=== PATIENT | male | born 1955 | race Caucasian/White ===

== ENCOUNTER → 2017-10-09 07:19 | Outpatient (CLI) | payer OTHER, SELFPAY ==
--- NOTE | 2017-10-09 | DI.MRI.S_ITS ---
PROCEDURE: MR CERVICAL SPINE WO CON INDICATIONS: CERVICAL SPINE RADICULOPATHY TECHNIQUE: Noncontrast sagittal T1 spin echo and T2 fast spin echo, sagittal STIR, foraminal oblique sagittal T2 fast spin echo, and axial gradient echo or T2 fast spin echo through the cervical spine. COMPARISON: [facility], CR, XR CERVICAL SPINE 2 OR 3 VIEWS, 09/19/2017, 9:43. FINDINGS: Image quality: Excellent. Alignment and Curvature: There is normal bony alignment. Bone Marrow: Marrow demonstrates normal overall signal. Mild reactive signal within the endplates adjacent to the C3-C4, C4-C5, C5-C6, and C6-C7 intervertebral discs. Spinal Cord: Visualized spinal cord has normal size and signal. No cerebellar tonsillar herniation. Paraspinous Soft Tissues: No paravertebral masses. Prevertebral soft tissues are normal in thickness. C2-C3: Left greater than right facet hypertrophy. Mild disc desiccation. Mild right and moderate left foraminal stenosis. No canal stenosis. C3-C4: Mild disc desiccation and diffuse disc bulge with superimposed moderate right posterolateral inferolateral protrusion. Mild facet and uncovertebral hypertrophy bilaterally. Moderate canal stenosis. Severe right and mild left foraminal stenosis. Minimal right anterior cord flattening. C4-C5: Mild disc desiccation and mild diffuse disc bulge. Mild facet and uncovertebral hypertrophy bilaterally. Moderate canal stenosis. Mild foraminal stenosis bilaterally. C5-C6: Mild disc desiccation and diffuse disc bulge. Mild facet and uncovertebral hypertrophy bilaterally. Mild canal stenosis. Mild foraminal stenosis bilaterally. C6-C7: Mild disc desiccation and diffuse disc bulge. Mild facet and uncovertebral hypertrophy bilaterally. Minimal canal stenosis. No foraminal stenosis. C7-T1: Mild disc desiccation and mild diffuse disc bulge. Mild facet and uncovertebral hypertrophy bilaterally. Mild canal stenosis. No foraminal stenosis. IMPRESSION: 1. Multilevel degenerative disc and facet disease, as well as uncovertebral hypertrophy. 2. Multilevel canal stenoses, worst at C3-C4, where there is moderate canal stenosis and minimal right anterior cord flattening. 3. Multilevel foraminal stenoses, worst on the left at C2-C3, and on the right at C3-C4. Dictated by: Reyna Gerardo M.D. on 10/09/2017 at 10:04 Approved by: Reyna Gerardo M.D. on 10/09/2017 at 10:07
== END ==
PROVIDERS: Visit Provider Orthopaedic Surgery Orthopaedic Surgery of the Spine
DX: M50.11 Cervical disc disorder with radiculopathy, high cervical region (principal); M48.02 Spinal stenosis, cervical region
CPT/HCPCS: 72141

== ENCOUNTER 2017-11-23 05:26 | Day surgery (SDC) | payer OTHER, SELFPAY ==
[2017-11-09 14:36] VITALS: BMI 34.4
[2017-11-23] VITALS (11 sets, daily range): BP systolic 134–169; BP diastolic 83–108; PULSE 64–96; RESP 11–16; TEMP 36–36.6; O2SAT 96–99; BMI 34.4
--- NOTE | 2017-11-23 | DI.RAD.S_ITS ---
PROCEDURE: XR CERVICAL SPINE 2V OR 3V INDICATIONS: C3-4 ACDF TECHNIQUE: 2 view(s) of the cervical spine were acquired. COMPARISON: [facility], MR, MR CERVICAL SPINE WO CON, 10/09/2017, 7:35. [facility], CR, XR CERVICAL SPINE 2 OR 3 VIEWS, 09/19/2017, 9:43. FINDINGS: Intraoperative images demonstrating anterior fusion from C3-C4 is present. There is trace anterolisthesis of C3 on C4.. IMPRESSION: ACDF at C3-4. Dictated by: Clarissa Snow M.D. on 11/23/2017 at 15:01 Approved by: Clarissa Snow M.D. on 11/23/2017 at 15:01
[2017-11-23] MEDS: LACTATED RINGERS 1,000 ML 42 ML IV ×2 (06:55→10:34)
--- NOTE | 2017-11-23 07:55 | PM.PREOP ---
Pre-operative Note Interval Note Pre-op Check: Yes History & Physical Reviewed by Physician, Yes Exam Performed and Yes History & Physical exam performed today by Physician Changes: No
[2017-11-23] MEDS: CEFAZOLIN 2 GM/100 ML FROZ.PIGGY IV (08:00)
--- NOTE | 2017-11-23 08:31 | SUR.OPER ---
Prone on spine table, head in foam head support, padded chest and pelvic supports, gel pad at knees, lower legs supported by pillows; nipples, genitalia and toes free of pressure, arms secured on foam padded arm boards at <90 degrees abduction. Tape over blanket at thigh secured to table.
--- NOTE | 2017-11-23 09:22 | SUR.OPER ---
Supine, head on gel donut. Arms padded with gel pads, tucked at sides, towel roll under shoulders. Safety belt at thigh. Legs uncrossed.
--- NOTE | 2017-11-23 09:50 | P.OP_ITS ---
Operative Date/Time/Diagnoses Date of procedure: 11/23/17 Time of procedure: 08:12 Pre-op diagnosis: 1. C3-4 spinal stenosis 2. C3-4 spondylosis with radiculopathy Post-op diagnosis: same Procedure & Clinicians Procedure: 1. C3-4 anterior cervical diskectomy and fusion 2. C3-4 anterior interbody cage placement 3. C3-4 anterior instrumentation with plate and screw placement in C3 and C4 vertebrae 4. Utilization of microsurgical technique and operating microscope Same procedure as scheduled: Yes Indications: Patient has been having chronic neck pain and worsening cervical radiculopathy. Patient failed multiple conservative management with worsening pain weakness and numbness in her upper extremity. Patient has been having difficulty performing activity of daily living. After discussing risks benefits of treatment options, patient elected proceed with surgery. Surgeon: Tez Sheehan Environmental Studies Program Director: Yohana Vines Click Yes if Unassisted: No Anesthesia Type: General Operative Notes Closure Type: primary Specimen(s): none sent Implants & Drains: Globus extend plate, PEEK cage Estimated Blood Loss (mL): 20 Blood products transfused: none Procedure in detail: Patient was seen in the preoperative area. Risks and benefits of the surgery was discussed with the patient. Informed consent was obtained from the patient and placed in the chart. Surgical site was marked. Patient was taken to the operative room. General anesthesia was administered. Prophylactic antibiotic was given to the patient less than 30 min before the incision was made. Patient was placed into a supine position on a radiolucent table. Patient's shoulders were taped down to allow proper C-arm imaging. Anterior cervical area was prepped and draped in a sterile fashion. Time-out was performed at this time. Using lateral C-arm imaging, the level between C3 and C4 was identified and marked on patient's neck. A oblique incision from midline towards medial border of sternocleidomastoid muscle was made. The platysma muscle was incised in line with skin incision. Metzenbaum scissor was used to develop the plane between the medial border of sternocleidomastoid and the strap muscles medially. The carotid sheath and its contents were identified and protected behind the hand- held retractor during the entire case. The plane between the carotid sheath and strap muscles was developed with Metzenbaum scissors. Dissection was made down to the level of the anterior cervical fascia. Longus colli muscle was incised on the anterior aspect of vertebral bodies bilaterally from C3-4. Spinal needle was placed into the C3-4 disc space and confirmed with lateral C-arm imaging. Using microsurgical technique and operative microscope, anterior cervical diskectomy was performed at C3-4 level. This was done by removing the disc material, removing the anterior and posterior osteophytes posterior longitudinal ligaments along with performing bilateral foraminotomies at the C3- 4 levels. Patient was found to have severe foraminal stenosis. Patient's stenosis was fully decompressed after decompression was completed. After the diskectomy was completed, an anterior interbody cage was obtained. The cage was packed with globus via cell bone grafting material. One cage each along with the bone grafting material was then packed into the interbody space at C3-4 along with an anterior cervical plate. The cervical plate was stabilized to the C3-4 vertebrae using screws. After confirming placement of the hardware with AP and lateral C-arm imaging, the screws were locked into the plate using the locking mechanism and torque limiting screwdriver. After the hardware was placed and confirmed with AP and lateral C-arm imaging, the wound was irrigated with sterile normal saline. The platysma muscle and the subcutaneous tissue was closed with 2-0 Vicryl. The skin was closed with 4-0 Monocryl and Steri-Strips. Patient tolerated the procedure well. Patient was transferred recovery room in stable condition. There were no complications. Complications: none Condition: stable Disposition: same day surgery Plan for aftercare: Discharge home
[2017-11-23] MEDS: HYDROMORPHONE 2 MG INJ 0.5 MG IV (10:21)
--- NOTE | 2017-11-23 11:03 | SUR.PHASEII ---
PT ARRIVED TO PHASE II VIA STRETCHER. PT SITTING UP IN STRETCHER WITH EYES CLOSED, EASILY AROUSABLE TO VOICE. OPERATIVE SITE OBSERVED TO BE C/D/I. PT HAS SOFT COLLAR AROUND NECK. PT HAS EQUAL STRENGTH IN ALL FOUR EXTREMITIES AND SENSTATION AT BASELINE FOR PT IN ALL FOUR EXTREMITIES. IV SITE CLEAR AND INFUSING WITHOUT DIFFICULTY. PT SIPPING ON WATER WITHOUT ANY DIFFICULTLY. PT GIVEN PUDDING PER REQUEST. PT DENIES ANY NAUSEA AT THAT TIME. WILL MEDICATED FOR PAIN WITH PO MEDICATION AFTER COMPLETION OF PUDDING. PT FAMILY AT BEDSIDE. BED IN LOWEST POSITION AND CALL LIGHT GIVEN TO PT.
[2017-11-23] MEDS: OXYCODONE IR 5 MG TABLET PO ×2 (11:13→11:47)
== END 2017-11-23 12:45 | disposition home or self-care (01) ==
PROVIDERS: Visit Provider Orthopaedic Surgery Orthopaedic Surgery of the Spine
PROC: (CPT 22551; principal; 2017-11-23 07:45)
DX: M48.02 Spinal stenosis, cervical region (principal); M47.22 Other spondylosis with radiculopathy, cervical region; W17.89XA Other fall from one level to another, initial encounter; G47.33 Obstructive sleep apnea (adult) (pediatric); E66.9 Obesity, unspecified; I10 Essential (primary) hypertension; E78.5 Hyperlipidemia, unspecified; E11.9 Type 2 diabetes mellitus without complications; J44.9 Chronic obstructive pulmonary disease, unspecified; J45.909 Unspecified asthma, uncomplicated; M19.90 Unspecified osteoarthritis, unspecified site; Z87.891 Personal history of nicotine dependence
CPT/HCPCS: 22551; 22853; 22845; 72040; 76001; C1776; J0690; J1100; J1170; J2250; J2405; J2704; J3010

== ENCOUNTER 2018-05-22 09:44 | Inpatient (IN) | payer OTHER, SELFPAY ==
[2018-05-14 08:42] VITALS: BMI 32.2
[2018-05-22] VITALS (12 sets, daily range): BP systolic 105–149; BP diastolic 59–87; PULSE 55–79; RESP 10–80; TEMP 36.1–36.6; O2SAT 94–98; BMI 32.0
--- NOTE | 2018-05-22 | DI.RAD.S_ITS ---
PROCEDURE: XR CERVICAL SPINE 2V OR 3V INDICATIONS: C4-5, C5-6 ACDF TECHNIQUE: 2 view(s) of the cervical spine were acquired. COMPARISON: [facility], , XR CERVICAL SPINE 2V OR 3V, 11/23/2017, 8:23. FINDINGS: 2 Limited intraoperative views of the cervical spine were acquired demonstrating interval ACDF of C4-5 and C5-6. Intervertebral spacers are noted. No acute hardware complication. Partially imaged endotracheal tube and nasogastric tube are visualized. IMPRESSION: Intraoperative fluoroscopic support for ACDF C4-5 and C5-6. Dictated by: Scott Silverio M.D. on 05/22/2018 at 17:00 Approved by: Scott Silverio M.D. on 05/22/2018 at 17:03
[2018-05-22] MEDS: LACTATED RINGERS 1,000 ML 42 ML IV ×2 (11:20→16:40)
[2018-05-22 11:24] LABS: Hematocrit 41.1 % (41-53); Platelet Count 97 X10^3/uL (150-400)
--- NOTE | 2018-05-22 11:38 | SUR.PREOP ---
Dr Rodarte asked for plt and hct to be drawn.- blood drawn and sent to lab, results reported to Dr Rodarte.
--- NOTE | 2018-05-22 12:47 | PM.PREOP ---
Pre-operative Note Interval Note History & Physical reviewed/Exam performed by Physician: Yes Changes to H&P: No
[2018-05-22] MEDS: CEFAZOLIN 2 GM/100 ML FROZ.PIGGY IV ×2 (14:30→23:36)
--- NOTE | 2018-05-22 15:08 | SUR.OPER ---
Supine, head on gel donut. Arms padded with gel pads, tucked at sides, towel roll under shoulders. Safety belt at thigh. Legs uncrossed.
--- NOTE | 2018-05-22 15:11 | SUR.OPER ---
GLASSES TO PACU IN LABELED CASE
[2018-05-22] MEDS: BUPIVACAINE 0.25% W/ EPI 30 ML VIAL INJ (15:22)
--- NOTE | 2018-05-22 16:47 | PM.OP.1 ---
Operative Date/Time/Diagnoses Date of procedure: 05/22/18 Time of procedure: 14:05 Pre-op diagnosis: 1. Hx of C3-4 anterior fusion 2. C4-5, C5-6 spinal stenosis 3. C4-5, C5-6 spondylosis with radiculopathy Post-op diagnosis: same Procedure & Clinicians Procedure: 1. C4-5, C5-6 anterior cervical discectomy and fusion 2. C4-5, C5-6 anterior instrumentation with plate and screws placement in C4, C5, C6 3. C3-4 anterior instrumentation removal 4. Utilization of microsurgical technique and operating microscope Same procedure as scheduled: Yes Indications: Patient has been having chronic neck pain and worsening cervical radiculopathy. Patient had prior C3-4 anterior cervical fusion. He ordered to place the anterior instrumentation as C4-5 C5-6, the anterior instrumentation needs to be removed. Patient failed multiple conservative management with worsening pain weakness and numbness in her upper extremity. Patient has been having difficulty performing activity of daily living. After discussing risks benefits of treatment options, patient elected proceed with surgery. Surgeon: Tez Sheehan Brand Ambassador Promotional Model: Yohana Vines Click Yes if Unassisted: No Anesthesia Type: General Operative Notes Closure Type: primary Specimen(s): none sent Prosthetic devices, grafts, tissues, transplants, or devices: Globus extend plate, [place] cages Applied: catheter Estimated Blood Loss (mL): 20 Blood products transfused: none Procedure in detail: Patient was seen in the preoperative area. Risks and benefits of the surgery was discussed with the patient. Operative consent was obtained and placed in the chart. Patient was then taken to the operative room. Prophylactic antibiotic was given less than 0.5 hr prior to skin incision. General anesthesia was administered. Patient was placed into a supine position on her radiolucent table. Bilateral shoulders were taped down to allow proper C-arm imaging. Anterior cervical area was prepped and draped in a sterile fashion. Time-out was performed at this time. Using lateral C-arm imaging, the level between C3 and C6 was identified and marked on patient's neck. A oblique incision from midline towards medial border of sternocleidomastoid muscle was made. The platysma muscle was incised in line with skin incision. Metzenbaum scissor was used to develop the plane between the medial border of sternocleidomastoid d and the strap muscles medially. The carotid sheath and its contents were identified and protected behind the hand-held retractor during the entire case. The plane between the carotid sheath and strap muscles was developed with Metzenbaum scissors. Dissection was made down to the level of the anterior cervical fascia. Longus colli muscle was incised on the anterior aspect of vertebral bodies bilaterally from C3-C6. Spinal needle was placed into the C5-6 disc space and confirmed with lateral C-arm imaging. The previously placed anterior cervical plate and screws were exposed by dissecting through the scar tissue. using the locking screwdriver and the fixation screw pile driver operator the plate and screws were removed without any difficulty from the C3 and C4 level. Exploration of fusion was performed, and the C3-4 level had a solid fusion. Using microsurgical technique and operative microscope, anterior cervical diskectomy was performed at C4-5 and C5-6 level. This was done by removing the disc material, removing the anterior and posterior osteophytes posterior longitudinal ligaments along with performing bilateral foraminotomies at both levels. Patient was found to have severe central and foraminal stenosis at both levels. Patient's stenosis was fully decompressed after decompression was completed. After the diskectomy was completed, 2 anterior interbody cages were obtained. The cages were packed with globus via cell bone grafting material. One cage each along with the bone grafting material was then packed into the interbody spaces from C4-5, C5-6 with one cage into each interbody level. After the cages were placed, the anterior cervical plate was stabilized to the C4-6 vertebrae using 2 screws at each each level. Total 6 screws were placed. After confirming placement of the hardware with AP and lateral C-arm imaging, the screws were locked into the plate using the locking mechanism and torque limiting screwdriver. After the hardware was placed and confirmed with AP and lateral C-arm imaging, the wound was irrigated with sterile normal saline. The platysma muscle and the subcutaneous tissue was closed with 2-0 Vicryl. The skin was closed with 4-0 Monocryl and Steri-Strips. Patient tolerated the procedure well. Patient was transferred recovery room in stable condition. There were no complications. Complications: none Condition: stable Disposition: PACU Plan for aftercare: Admit to inpatient hospital
[2018-05-22] MEDS: HYDROMORPHONE 2 MG INJ 0.5 MG IV ×2 (17:09→17:20)
[2018-05-22] MEDS: hydrOXYzine 50 MG/ML INJ 25 MG IM (17:09)
--- NOTE | 2018-05-22 17:21 | SUR.PHASEI ---
Hearing aids placed. Tens unit restarted and set to 12 per patient instructions.
--- NOTE | 2018-05-22 17:42 | SUR.PHASEI ---
Report called to Lakesha
--- NOTE | 2018-05-22 17:55 | SUR.PHASEI ---
Pt transferred to the floor. Report to Lakesha. VS stable. Collar in place. Small amt of sero-sang drainage to nicki. Glasses, hearing aids, cpap, belongings bag and tens unit with patient. IV saline locked. Pt sitting up, talking with staff.
[2018-05-22] MEDS: SODIUM CHLORIDE 0.9% 1,000 ML 100 ML IV (18:08)
--- NOTE | 2018-05-22 18:59 | PC.NURSE ---
Addendum entered by Jeniffer Olvera R.N. 05/22/18 21:42: HS CBG = 307, NPH given as per orders. Stable post op course. Denies discomfort. Dsg to anterior neck remains unchanged. IVF continue as per orders. Satisfactory post op course. Call light w/in reach/ bed alarm on for pt safety. Continue w/plan of care. Original Note: Addendum entered by Jeniffer Olvera R.N. 05/22/18 19:05: Pt has personal Cpap, hearing aides and TENS unit in place left back Pt states that he has an eustachian tube in left ear. Original Note: Pt arrived to room 203 alert/oriented. VSS SpO2 98% RA Dsg to anterior neck w/small shadow drainage upper left corner. Soft collar in place. Denies any discomfort at this time. Pt and family oriented to room and call system. Call light w/in reach, bed alarm on for pt safety.
[2018-05-22] MEDS: GABAPENTIN 300 MG CAPSULE PO (20:37)
[2018-05-22] MEDS: glipiZIDE 5 MG TABLET 10 MG PO (20:37)
[2018-05-22] MEDS: SENNOSIDES 8.6 MG TABLET 17.2 MG PO (20:38)
[2018-05-22] MEDS: SIMVASTATIN 40 MG TABLET PO (20:42)
[2018-05-22] MEDS: INSULIN NPH 100 UNIT/ML VIAL 17 UNIT SUBCUT (21:31)
[2018-05-23 03:13] VITALS: BP 122/67; PULSE 70; RESP 16; TEMP 36.5; O2SAT 95
[2018-05-23] MEDS: OXYCODONE IR 5 MG TABLET 10 MG PO ×3 (03:15→11:50)
[2018-05-23 05:31] VITALS: BP 119/70; PULSE 72; RESP 16; TEMP 36.8; O2SAT 96
[2018-05-23] MEDS: CEFAZOLIN 2 GM/100 ML FROZ.PIGGY IV (05:40)
[2018-05-23 06:06] LABS: Hematocrit 38.5 % (41-53); Hemoglobin 13.1 g/dL (13.5-17.5)
[2018-05-23 07:37] VITALS: BP 120/72; PULSE 65; RESP 16; TEMP 36.7; O2SAT 98
[2018-05-23] MEDS: GABAPENTIN 300 MG CAPSULE PO (08:20)
[2018-05-23] MEDS: CHOLECALCIFEROL (VITAMIN D3) 5,000 UNIT TABLET 5000 UNIT PO (08:20)
[2018-05-23] MEDS: CYANOCOBALAMIN (VITAMIN B-12) 500 MCG TABLET 2000 MCG PO (08:20)
[2018-05-23] MEDS: glipiZIDE 5 MG TABLET 10 MG PO (08:21)
[2018-05-23] MEDS: DOCUSATE 100 MG CAPSULE PO (08:22)
[2018-05-23] MEDS: PANTOPRAZOLE 20 MG TABLET PO (08:22)
[2018-05-23] MEDS: INSULIN NPH 100 UNIT/ML VIAL 17 UNIT SUBCUT (08:23)
--- NOTE | 2018-05-23 09:41 | OT.IP.EVAL ---
Current Diagnoses Other spondylosis with radiculopathy, cervical region (05/22/18) Spinal stenosis, cervical region (05/22/18) Arthrodesis status (05/22/18) Surgery Performed Operation Date: 05/22/18 12:15 Actual Procedures p C4-5,C5-6 ACDF w/Anterior Instru.(Not Applicable) - Tez Sheehan MD Past Medical History (Last Updated 05/15/18 @ 10:57 by Angela Garcia RN) Asthma (Acute) Bronchitis (Acute) CVA (cerebral vascular accident) (Acute ~2007) Chronic cough (Acute) Diabetes (Acute) Edema (Acute) Environmental allergies (Acute) HTN (hypertension) (Acute) Kidney stone (Acute) Left ankle injury (Acute ~2003) Numbness and tingling (Acute) KALYAN on CPAP (Acute) Psoriasis (Acute) Reflux esophagitis (Acute) Right hand weakness (Acute) TIA (transient ischemic attack) (Acute) Thrombocytopenia (Acute) UTI (urinary tract infection) (Acute ~02/2018) [place] teeth removed (Acute) Cervical pain (Acute) Chronic insomnia (Acute) Chronic musculoskeletal pain (Acute) DJD (degenerative joint disease) (Acute) Fatigue (Acute) Hearing loss (Acute) History of colon polyps (Acute) History of pilonidal cyst (Acute) Joint pain (Acute) Osteoarthritis, generalized (Acute) Prosthetic and other implants, materials and accessory general- and plastic-surgery devices associated with adverse incidents (Acute) Sleep disorder (Acute) Spinal stenosis in cervical region (Acute) Spondylosis of cervical spine with myelopathy (Acute) Upper extremity pain (Acute) Surgical History (Last Updated 05/17/18 @ 10:19 by Angela Garcia RN) History of implanted electronic device (Acute) History of total right hip arthroplasty (Acute ~2010) Hx of arthroscopy of left knee (Acute) S/P cervical spinal fusion (Acute 11/23/17) History of colonoscopy (Acute) History of placement of ear tubes (Acute) Occupational Therapy Inpatient Evaluation/Re-Eval M1 PT/OT-IP Prior Functional Status Start: 05/23/18 12:40 Freq: NEEDED Status: Active Protocol: Document 05/23/18 09:41 SAIMA (Rec: 05/23/18 12:58 SAIMA [id number]) Medical Review Prior Functional Status Medical History Reviewed Yes Diet/Fluid Consistency Regular Communication WNL Mobility and Gait Pt states he ambulates without a device. Activities of Daily Living and IADL's Pt states he is indep with all self care. He and share research nurse practitioner when he is feeling well. Pt's does not drive. Prior Functional Level (Other details) Pt is retired. does not work outside the home due to to health issues, but she can assist pt PRN with IADLS. Social History Household Members spouse family other Living Arrangements House Number of Stairs To Enter/Railing? 3 with railing Home Environment High Toilet Walk in Shower Home Equipment Shower Seat with Backrest Bottom Hoop Driver Grab Bars In Shower Employment Status Retired Additional Social History Comment Pt's mother also lives in home and has memory deficits per pt. Pt's sister and brother in law staying in their motor home on property to assist pt and his mother PRN. M2 OT-IP Current Condition Start: 05/23/18 12:40 Freq: Status: Active Protocol: Document 05/23/18 09:41 PJM (Rec: 05/23/18 12:58 PJ [id number]) Occupational Therapy Current Condition Current Condition Evaluation Date 05/23/18 Treatment Diagnosis decreases self care, s/p C4-6 ACDF w/removal of C-3 hardware Post Operative Precautions Lumbar Precautions Log Roll No Twisting Limit Bending Lifting Restriction of 10 lbs Gait Belt above Incisional Area M3 OT- IP Subjective and Pain Start: 05/23/18 12:40 Freq: Status: Active Protocol: Document 05/23/18 09:41 PJM (Rec: 05/23/18 12:58 PJ [id number]) OT- Subjective Occupational Therapy Visit Type Type Initial Evaluation Visit Start Time 09:12 Visit Stop Time 09:41 Occupational Therapy Visit Comments Patient Comments I can't wait to get back to my garden. Patient/Caregiver Goals to go home later today, be able to work in his garden OT Pain Assessment Pain When Pain Assessed After Treatment Pain Present Pain Present Pain Reported Location Neck Intensity 4 Scale Used Numeric (1 - 10) Description Aching Acute Management Techniques Distraction Re-positioning Timing of Activity with Medications M4 OT- IP ADL's Start: 05/23/18 12:40 Freq: Status: Active Protocol: Document 05/23/18 09:41 PJM (Rec: 05/23/18 12:58 PJ [id number]) OT [id number] General Evaluation Self-Feeding Ability Independent OT ADL-Grooming General Evaluation Grooming Ability Independent Comments OT Grooming Comments standing at sink, education provided re: body mechanics OT ADL-Oral Care General Eval Oral Care Ability Independent Comments Oral Care Comments standing at sink, education provided re: body mechanics OT ADL-Dressing General Eval Upper Body Dressing Ability Independent Lower Body Dressing Ability Standby Assistance Assistive Devices Dressing Assistive Devices Bottom Hoop Driver Comments OT Dressing Comments Pt wears slip on shoes. Provided education re: use of apple picking supervisor to don and doff pants and doff socks PRN. Pt declines to change out of pajama pants at present. can assist PRN at home. Pt does not need sock aid and wears slip on shoes. OT ADL-Toileting General Evaluation Toileting Ability Independent OT ADL-Bathing Bathing Type Bathing Type Shower General Evaluation Bathing Ability Standby Assistance Devices Bathing Equipment Shower Chair without Arms Grab Bars Comments OT Bathing Comments Provided education re: methods to keep incision dry. can provide SBA for shower PRN at home. M5 OT- IP IADL's Start: 05/23/18 12:40 Freq: Status: Active Protocol: Document 05/23/18 09:41 PJM (Rec: 05/23/18 12:58 [facility] NR) OT-Instrumental Activities of Daily Living Deficits IADL Deficits Identified Deficits Home Safety Awareness Awareness of Need for Assistance at Home Good Awareness Ability to Problem Solve Emergency Able to Problem Solve Situations Medication Management Medication Management No Deficits Identified Money Management Money Management No Deficits Identified Meal Preparation Meal Preparation Caregiver Provides Assist Meal Preparation Comments family to assist until pt able Brake Machine Operator Brake Machine Operator Caregiver Provides Assist Brake Machine Operator Comments family to assist until pt able Driving Driving Caregiver Provides Assist Driving Comments family to assist until pt able M6 OT- IP Functional Cognition Start: 05/23/18 12:40 Freq: Status: Active Protocol: Document 05/23/18 09:41 PJM (Rec: 05/23/18 12:58 [facility] [id number]) Cognitive Factors Limiting Selfcare Function Cognitive Ability Level of Alertness Alert Patient Orientation Name Age Birthday Month Date Year Day of Week Place Situation Attention Span Ability Capable of Focused Attention Capable of Sustained Attention Ability to Follow Commands Able to Follow One Step Commands Memory Description No Deficits Noted Safety Awareness No Deficits Noted Problem Solving Ability No deficits Noted Cognitive Comments Cognitive Assessment Comments Pt verbalizes understanding of C spine precautions and body mechanics. Pt tends to move quickly; needs occasional cues to apply precautions during self care tasks. OT- Vision and Hearing OT- Hearing Assessment OT- Hearing Assessment WFL OT- Vision Assessment Visual Acuity WFL Glasses All The Time Vision Assessment Comments Pt denies any recent vision changes. M7 OT- IP Mobility and Balance Start: 05/23/18 12:40 Freq: Status: Active Protocol: Document 05/23/18 09:41 PJM (Rec: 05/23/18 12:58 PJ [email or web address]) OT- Bed Mobility Assessment Rolling Type of Rolling Roll to Right Level of Assistance Independent Supine to Sit Supine to Sit Assist Independent Scooting Scooting to Edge of Bed Independent OT-Transfer Assessment Sit to and From Stand Sit to and from Stand Standby Assistance Transfers Transfer Ability Standby Assistance Technique Transfer Destination Toilet Transfer Technique Stand Step Pivot Devices Transfer Assistive Devices None Comments Mobility Comments Pt mildly dizzy when he first came to sitting, but not orthostatic. OT- Gait Assessment Gait Gait Assistance Required: Standby Assistance Distance (Feet) 250 Comments Gait Ability Comments Pt ambulated in [place] without a device. OT- Balance Assessment Sitting Balance and Reactions Static Sitting Balance Ability Good Dynamic Sitting Balance Ability Good Standing Balance and Reactions Static Standing Balance Ability Good Dynamic Standing Balance Ability Good M8 OT- IP Objective Assessments Start: 05/23/18 12:40 Freq: Status: Active Protocol: Document 05/23/18 09:41 PJM (Rec: 05/23/18 12:58 PJ [id number]) OT Gross Range of Motion Upper Extremity Range of Motion Assessment Within Functional Limits OT Strength Upper Extremity Strength Assessment Within Functional Limits Hand Creative Services Coordinator Strength Hand Dominance Right OT- Coordination Assessment Comments Coordination Comments BUE WFL, note pt c/o's B carpal tunnel syndrome with decreased sensation in median nerve distribution which interferes with dexterity at times. Pt also has hx of stroke with R side weakness. Pt has made good functional recovery, but drops items out of R hand when distracted. OT-Muscle Tone Assessment Muscle Tone WNL Yes OT Sensation Assessment Comments Summary Comments Pt has B carpal tunnel syndrome that needs surgery per pt. He has numbness in median nerve distribution of B hands. Edema Edema Absent M9 OT- IP Assessment and Plan Start: 05/23/18 12:40 Freq: Status: Active Protocol: Document 05/23/18 09:41 PJKristan (Rec: 05/23/18 12:58 PJM [id number]) OT Summary Assessment and Plan Potential Rehabilitation Potential Good Analytic Complexity at Evaluation Low Summary Progress Towards Goals Safe For Discharge Goals Met Assessment Summary Low complexity OT assessment and and all education completed in one session re: C spine precautions and adapted ADL techniques. Pt familiar with precautions from previous C spine surgery 11/2017. He is SBA to independent with functional mobility and self care in room. Pt plans to d/c home today where he will have assist from multiple family members PRN. No further OT services needed. Frequency of Treatment Frequency Of Treatment Discharge Discharge Recommendations OT Discharge Recommendations Home with Assistance
--- NOTE | 2018-05-23 09:42 | P.DS_ITS ---
History of Present Illness Date Patient Seen: 05/23/18 Time Patient Seen: 09:39 Chief complaint: [id number] Narrative: Hospital day 2, postop day 1 following C3-4 hardware removal, C4-5, C5-6 ACDF with anterior plate and screws by Dr. Sheehan. Patient remained stable po stoperatively. I states his preoperative arm pain and numbness has resolved. Pain controlled with oxycodone. He has not had any physical therapy yet. Patient feels he is ready to go home. Discharge Providers Date of admission: 05/22/18 09:44 Discharge Date: 05/23/18 Primary care physician: Claudette Nicole Consults: 05/22/18 11:33 Consult to Respiratory Therapy Evaluate & Treat Comment: Physician Instructions: Evaluate and treat 05/22/18 17:43 Consult to Occupational Therapy Evaluate & Treat Comment: Physician Instructions: Evaluate and treat Consult to Physical Therapy Evaluate & Treat Comment: Physician Instructions: Evaluate and Treat 05/22/18 18:05 Consult to Dietitian, Adult Routine Comment: Reason For Exam: assessed at high risk Discharge provider: Sean Rodriguez PA-C Summary Discharge Diagnosis: Status post C3-4 hardware removal, C4-5, C5-6 ACDF, anterior plate and screws. Hospital Course: Patient brought to hospital on 05/22/2018 for above-noted surgery. He remained stable postoperatively. Patient progressed well with therapy. Discharged home on postop day on. Status at Discharge Cognitive/behavioral status at discharge: oriented Functional status at discharge: uses cane/walker Overall status at discharge: patient is progressing back to baseline Time Spent with Patient Less than 30 minutes Exam Vital Signs (past 8 hours): - 05/23/18 03:13 05/23/18 05:31 05/23/18 07:37 Temperature 97.7 F 98.3 F 98.0 F Pulse Rate 70 72 65 Respiratory Rate 16 16 16 Blood Pressure 122/67 119/70 120/72 Pulse Oximetry 95 96 98 Oxygen Delivery Method Room Air Oxygen Flow Rate 0 Narrative Exam Narrative: Alert, oriented no acute distress resting in bed. neck. soft cervical collar in place. dressing to left anterior neck is dry with the small area of shadowing. Arms. Advance Scout strong and equal. Pulses and sensation and symmetrical. Good strength on elbow flexion extension and shoulder ABduction. Objective Labs Result Diagrams: 05/23/18 05:35 Labs: Laboratory Results - last 24 hr 05/22/18 05/23/18 11:15 05:35 Hgb 13.1 L Hct 41.1 38.5 L Plt Count 97 L Discharge Plan Discharge Plan Patient Disposition: Home Discharge comment: Discharged home today after cleared by PT/OT. Given prescri ption for oxycodone. Patient wear soft cervical collar for the next 4 days and then may remove if comfortable. Discharge Med Rec/Prescriptions Prescriptions: New oxycodone 5 mg Tablet 10 mg PO Q3HR PRN (Reason: Pain, Severe (7-10)) Qty: 30 RF: 0 Continued modafinil 200 mg Tablet 200 mg PO BID RF: 0 tramadol 50 mg Tablet 50 mg PO BID PRN (Reason: Pain) RF: 0 prednisolone acetate (PF) 1 % Drops,Suspension 3 drp SEEINSTR PRN (Reason: infection) RF: 0 diazepam [Valium] 10 mg Tablet 10 mg PO BID PRN (Reason: Muscle Spasm) RF: 0 trazodone 50 mg Tablet 50 mg PO QPM RF: 0 glipizide 10 mg Tablet 10 mg PO BID RF: 0 simvastatin 40 mg Tablet 40 mg PO QPM RF: 0 losartan 25 mg Tablet 25 mg PO QPM RF: 0 gabapentin 300 mg Capsule 300 mg PO TID RF: 0 omeprazole 20 mg Capsule,Delayed Release(Dr/Ec) 20 mg PO BID RF: 0 Humulin N NPH Insulin KwikPen 15 unit 17 - 19 unit BID RF: 0 oxycodone 5 mg tablet 5 mg PO Q4-6H PRN (Reason: pain) Qty: 60 RF: 0 diphenoxylate-atropine 2.5-0.025 mg Tablet 1 tab PO Q6-8H PRN (Reason: Diarrhea) RF: 0 ondansetron 4 mg Tablet,Disintegrating 4 mg PO Q6-8H PRN (Reason: Nausea, vomiting) RF: 0 cyanocobalamin (vitamin B-12) [Vitamin B-12] 2,000 mcg Tablet Extended Release 2,000 mcg PO DAILY RF: 0 ipratropium-albuterol 0.5 mg-3 mg(2.5 mg base)/3 mL Solution For Nebulization 3 ml INHALATION Q6-8H PRN (Reason: Asthma) RF: 0 albuterol sulfate [Ventolin HFA] 90 mcg/actuation Hfa Aerosol Inhaler 2 puff INHALATION Q4-6H PRN (Reason: Asthma) RF: 0 cholecalciferol (vitamin D3) [Vitamin D3] 5,000 unit Tablet 5,000 unit PO DAILY RF: 0 Follow up/Referrals: Claudette Nicole [Primary Care Provider] - Provider Discharge Instructions Diet: Diet as Tolerated Activity: Ambulate as tolerated. Avoid excessive had movement. No lifting or carrying more than 5-10 lb. Skin/Wound/Dressing Care Report to your healthcare provider any signs of infection, such as:: chills, fever, night sweats, increased pain, unusual drainage and unusual redness Dressing: Keep dressing to left anterior neck clean and dry until postop visit. Discharge Data Primary Care Provider: Claudette Nicole Attending Provider: Tez Sheehan Admit Date/Time: 05/22/18 09:44
--- NOTE | 2018-05-23 10:20 | PT.IIE ---
Current Diagnoses Other spondylosis with radiculopathy, cervical region (05/22/18) Spinal stenosis, cervical region (05/22/18) Arthrodesis status (05/22/18) Surgery Performed Operation Date: 05/22/18 12:15 Actual Procedures p C4-5,C5-6 ACDF w/Anterior Instru.(Not Applicable) - Tez Sheehan MD Surgical History (Last Updated 05/17/18 @ 10:19 by Angela Garcia, RN) History of colonoscopy (Acute) History of implanted electronic device (Acute) History of placement of ear tubes (Acute) History of total right hip arthroplasty (Acute ~2010) Hx of arthroscopy of left knee (Acute) S/P cervical spinal fusion (Acute 11/23/17) Medical History (Last Updated 05/15/18 @ 10:57 by Angela Garcia RN) Asthma (Acute) Bronchitis (Acute) CVA (cerebral vascular accident) (Acute ~2007) Cervical pain (Acute) Chronic cough (Acute) Chronic insomnia (Acute) Chronic musculoskeletal pain (Acute) DJD (degenerative joint disease) (Acute) Diabetes (Acute) Edema (Acute) Environmental allergies (Acute) Fatigue (Acute) HTN (hypertension) (Acute) Hearing loss (Acute) History of colon polyps (Acute) History of pilonidal cyst (Acute) Joint pain (Acute) Kidney stone (Acute) Left ankle injury (Acute ~2003) Numbness and tingling (Acute) KALYAN on CPAP (Acute) Osteoarthritis, generalized (Acute) Prosthetic and other implants, materials and accessory general- and plastic-surgery devices associated with adverse incidents (Acute) Psoriasis (Acute) Reflux esophagitis (Acute) Right hand weakness (Acute) Sleep disorder (Acute) Spinal stenosis in cervical region (Acute) Spondylosis of cervical spine with myelopathy (Acute) TIA (transient ischemic attack) (Acute) Thrombocytopenia (Acute) UTI (urinary tract infection) (Acute ~02/2018) Upper extremity pain (Acute) [place] teeth removed (Acute) Physical Therapy Inpatient Evaluation/Re-Eval M1 PT/OT-IP Prior Functional Status Start: 05/23/18 12:40 Freq: NEEDED Status: Discharge Protocol: Document 05/23/18 09:41 SAIMA (Rec: 05/23/18 12:58 SAIMA [id number]) Medical Review Prior Functional Status Medical History Reviewed Yes Diet/Fluid Consistency Regular Communication WNL Mobility and Gait Pt states he ambulates without a device. Activities of Daily Living and IADL's Pt states he is indep with all self care. He and share audio visual manager when he is feeling well. Pt's does not drive. Prior Functional Level (Other details) Pt is retired. does not work outside the home due to to health issues, but she can assist pt PRN with IADLS. Social History Household Members spouse family other Living Arrangements House Number of Stairs To Enter/Railing? 3 with railing Home Environment High Toilet Walk in Shower Home Equipment Shower Seat with Backrest Front End Developer Grab Bars In Shower Employment Status Retired Additional Social History Comment Pt's mother also lives in home and has memory deficits per pt. Pt's sister and brother in law staying in their motor home on property to assist pt and his mother PRN. M1 PT/OT-IP Prior Functional Status Start: 05/23/18 13:10 Freq: NEEDED Status: Discharge Protocol: Document 05/23/18 10:20 AB (Rec: 05/23/18 13:20 AB [id number]) Medical Review Prior Functional Status Medical History Reviewed Yes Diet/Fluid Consistency Regular Communication able to make needs known Mobility and Gait stated that he is independent with all mobilities and ambulation without AD but occasionally uses SPC/ hurrycane depending on his back pain Activities of Daily Living and IADL's per OT note: Pt states he is indep with all self care. He and share audio visual manager when he is feeling well . Pt's does not drive. Social History Household Members spouse other Living Arrangements House Number of Floors (Floors) One Floor Number of Stairs To Enter/Railing? 3 steps with L rail ascending Home Environment High Toilet Walk in Shower Built-In Shower Seat Home Equipment Straight Cane Hand Held Shower Front End Developer Grab Bars In Shower Employment Status Retired Additional Social History Comment per OT notes: Pt's mother also lives in home and has memory deficits per pt. Pt's sister and brother in law staying in their motor home on property to assist pt and his mother PRN. M2 PT-IP Current Condition Start: 05/23/18 13:10 Freq: NEEDED Status: Discharge Protocol: Document 05/23/18 10:20 AB (Rec: 05/23/18 13:20 AB [id number]) Physical Therapy Current Condition Current Condition Evaluation Date 05/23/18 Treatment Diagnosis s/p C4-6 ACDF, C3-4 anterior intrum. removal; difficulty in walking Onset Date 05/22/18 Precautions Cervical Spine Precautions Soft Collar for Comfort No Heavy Lifting Log Roll M3 PT-IP Subjective Start: 05/23/18 13:10 Freq: NEEDED Status: Discharge Protocol: Document 05/23/18 10:20 AB (Rec: 05/23/18 13:20 AB [id number]) Subjective Physical Therapy Visit Type Type Initial Evaluation Visit Start Time 10:20 Visit Stop Time 10:33 Total Visit Minutes 13 Number of SUPPORT DIRECTOR Visits 0 Physical Therapy Visit Comments Patient Comments pt agreeable to do PT Therapy Pain Assessment Pain When Pain Assessed At Rest Pain Present Pain Present Pain Reported Location Neck Intensity 4 Scale Used Numeric (1 - 10) Pain Management Techniques Re-positioning Timing of Activity with Medications M4 PT-IP Mobility and Gait Start: 05/23/18 13:10 Freq: NEEDED Status: Discharge Protocol: Document 05/23/18 10:20 AB (Rec: 05/23/18 13:20 AB [id number]) PT-Bed Mobility Assessment Rolling Type of Rolling Log Rolling Level of Assist Standby Assistance Supine to Sit Supine to Sit Standby Assistance Sit to Supine Sit to Supine Standby Assistance Scooting Scooting to Edge of Bed Standby Assistance Scooting Up and Down in Bed Standby Assistance PT-Transfer Assessment Sit to and From Stand Sit to and from Stand Standby Assistance Equipment Transfer Assistive Device None Gait Belt Orthotic/Prosthetic Devices or Brace: Yes Transfers Transfer Destination Bed Transfer Technique Stand Step Pivot Transfer Ability Level of Assist Standby Assistance Gait Assessment Gait Gait Assistance Required: Standby Assistance Distance (Feet) 200 Able to Maintain Weight Bearing Status Yes During Gait Assistive Devices Assistive Device None Gait Belt Orthotic/Prosthetic Devices or Brace: Yes Gait Deviations General Gait Pattern Antalgic Decreased Stride Length Decreased Feet Clearance Factors Limiting Gait Function Factors Limiting Gait Function Decreased Activity Tolerance Decreased Strength Limited Range of Motion Pain Poor Balance Stair Climbing Assessment Evaluation Level of Assist On Stairs Standby Assistance Devices Stair Climbing Assistive Devices Left Railing Technique/Endurance Stair Climbing Direction Ascend and Descend Stair Climbing Technique Step Over Step Step to Step Number of Steps Climbed 3 Query Text: PT-Balance Assessment Sitting Balance and Reactions Static Sitting Balance Ability Good Dynamic Sitting Balance Ability Good Standing Balance and Reactions Static Standing Balance Ability Fair Dynamic Standing Balance Ability Fair Device Used without AD M5 PT-IP Objective Assessments Start: 05/23/18 13:10 Freq: NEEDED Status: Discharge Protocol: Document 05/23/18 10:20 AB (Rec: 05/23/18 13:20 AB [id number]) Orientation Orientation/Cognition Level of Alertness Alert Orientation Name Age Birthday Month Date Year Day of Week Place Situation Safety Awareness Understands Safety Issues Memory Description No Deficits Noted Gross Range of Motion Lower Extremity ROM Assessment Within Functional Limits Strength Lower Extremity Strength Assessment Within Functional Limits Coordination Assessment Gross Coordination Gross Coordination WNL Sensation Assessment Sensation Gross Sensation WNL Muscle Tone Muscle Tone WNL Yes M6 PT-IP Treatment Start: 05/23/18 13:10 Freq: NEEDED Status: Discharge Protocol: Document 05/23/18 10:20 AB (Rec: 05/23/18 13:20 AB [id number]) Physical Therapy Treatment Education Education Provided Precautions Weight Bearing Status Post-Op Packet Safety M7 PT-IP Assessment and Plan Start: 05/23/18 13:10 Freq: NEEDED Status: Discharge Protocol: Document 05/23/18 10:20 AB (Rec: 05/23/18 13:20 AB [id number]) PT Summary Assessment and Plan Potential Rehabilitation Potential Good Status of Condition at Evaluation Stable Summary Impairments Pain ROM Strength Balance Coordination Sensation Tone Cognition Bed Mobility Transfers Gait Activity Tolerance Assessment Summary pt doing well with mobility and plans to go home today. spouse will assit pt at home. Goals Bed Mobility Goal Independent Transfer Goal Independent Gait Goal Independent Gait Distance 300 Other Goals up/down 3 steps with L rail ascending mod I Days to Meet Goals 3 Frequency of Treatment Frequency Of Treatment Twice a Day Treatment Plan Physical Therapy Treatment Plan Bed Mobility Training Transfer Training Gait Training Therapeutic Exercise Balance Retraining Post Op Education Discharge Planning Hot or Cold Pack Neuromuscular Re-ed Coordination Retraining Manual Therapy Recommendations To Nursing Amount of Assist Needed Standby Assistance Discharge Recommendations PT Discharge Recommendations Home with Assistance
--- NOTE | 2018-05-23 11:57 | DIET.PN ---
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 Estimates 6# loss in 2wk O: s/p surgery, spinal stenosis Wt 96kg BMI 32 Diet: general Assessment: Increased nutrient needs for healing post surgery. Obese per BMI. Has lost approx 6# recently for 2% change in 2 weeks. High risk for sarcopenia r/t obesity; bedrest; surgery. Malnutrition: Mild acute illness pcm r/t pain AEB recent 2% change in wt over 2 weeks. Intervention: Add Ensure Enlive to meals to promote healing and help prevent loss of muscle
--- NOTE | 2018-05-23 13:02 | PC.NURSE ---
Discharge pt states pain controlled with 10 mg oxycodone. pt states he took all belongings home with him including CPAP and ipad. pt left with . D/c instructions provided to pt and his . Aware of f/u apt with MD and also to contact MD with any additional questions or concerns. Pt left in w/c with to sister's car.
--- NOTE | 2018-05-24 08:39 | CM.DPNOTE ---
Late Entry/ DC Note: Pt discussed in multidisciplinary rounds yesterday morning. No barriers indicated to safe return home. No SW needs upon DC. JW
== END 2018-05-23 12:57 | disposition home or self-care (01) | DRG 473 ==
PROVIDERS: Anesthesiology; Admitting Provider Orthopaedic Surgery Orthopaedic Surgery of the Spine; PCP Physician Assistant Medical; Visit Provider Orthopaedic Surgery Orthopaedic Surgery of the Spine
PROC: 0RG20A0 Fusion of 2 or more Cervical Vertebral Joints with Interbody Fusion Device, Anterior Approach, Anterior Column, Open Approach (ICD-10-PCS; principal; 2018-05-22 12:15)
DX: M48.02 Spinal stenosis, cervical region (principal); M47.22 Other spondylosis with radiculopathy, cervical region; G47.33 Obstructive sleep apnea (adult) (pediatric); I10 Essential (primary) hypertension; E66.9 Obesity, unspecified; E78.5 Hyperlipidemia, unspecified; E11.9 Type 2 diabetes mellitus without complications; Z98.1 Arthrodesis status; Z79.4 Long term (current) use of insulin
CPT/HCPCS: 36415; 72040; 76000; 82962; 85014; 85018; 85049; 97161; 97165; 97535; C1776; J0330; J0690; J1100; J1170; J2250; J2405; J2704; J3010; J3410

== ENCOUNTER → 2019-01-01 11:29 | Outpatient (CLI) | payer OTHER, SELFPAY ==
[2018-05-22 18:01] VITALS: BMI 32.0
--- NOTE | 2019-01-01 | DI.CT.S_ITS ---
PROCEDURE: CT LUMBAR SPINE WO CON INDICATIONS: LOW BACK PAIN TECHNIQUE: Noncontrast 3 mm thick sections acquired from the T12 level to the sacrum. Sagittal and coronal reformats were constructed. For radiation dose reduction, the following was used: automated exposure control. COMPARISON: None. FINDINGS: Image quality: Excellent. Bones: There is normal bony alignment. No acute vertebral body compression fractures. No suspicious lytic or blastic bony lesions. Central spinal caliber is of normal overall caliber. No pars defects. T12-L1: No significant abnormality is seen. L1-L2: The disc height is well-preserved. Bridging anterior osteophytes are seen. No significant neural foraminal or central canal narrowing can be seen. L2-L3: The disc height is well-preserved. Bridging endplate osteophytes are seen. Mild bilateral neural foraminal narrowing is seen. Mild central canal narrowing is seen. L3-L4: The disc height is well-preserved. Moderate disc bulge is seen, with a central disc protrusion seen. Moderate bilateral neural foraminal narrowing is seen. Moderate central canal narrowing is seen. L4-L5: The disc height is well preserved. Bridging endplate osteophytes are seen. Moderate generalized disc bulge is seen is seen, with a central disc protrusion seen. Moderate bilateral neural foraminal narrowing is seen. At least moderate central canal narrowing is seen. L5-S1: The disc height is well preserved. Bridging endplate osteophytes are seen. Ptsu-pj-fpfkkpvq disc bulge is seen. Ukto-nz-mhdqtjtt bilateral neural foraminal narrowing is seen. Mild central canal narrowing is seen. There is moderate to prominent fusion of the right sacroiliac joint anteriorly. Soft tissues: No retroperitoneal masses or hematomas. Visualized aorta is normal in caliber. Atherosclerotic calcification is noted. There is a thoracic spine stimulator partially seen. The power pack is seen on the left. IMPRESSION: Multiple levels of lumbar spine degenerative changes are seen, which are overall most prominent at the L4-L5 level. There is a left-sided thoracic spine stimulator partially seen. Dictated by: Caleb Johnson M.D. on 01/01/2019 at 15:41 Approved by: Caleb Johnson M.D. on 01/01/2019 at 15:45
== END ==
PROVIDERS: PCP Physician Assistant Medical; Visit Provider Orthopaedic Surgery Orthopaedic Surgery of the Spine
DX: M54.5 Low back pain (principal); M47.816 Spondylosis without myelopathy or radiculopathy, lumbar region
CPT/HCPCS: 72131

== ENCOUNTER → 2019-08-31 08:09 | Outpatient (CLI) | payer OTHER, SELFPAY ==
[2018-05-22 18:01] VITALS: BMI 32.0
[2019-09-01 21:12] LABS: COVID19 Sendout Not Detected (Not Detect)
== END ==
PROVIDERS: PCP Physician Assistant Medical; Visit Provider Physician Assistant
DX: Z01.818 Encounter for other preprocedural examination (principal)
CPT/HCPCS: 87635

== ENCOUNTER 2019-09-03 11:09 | Day surgery (SDC) | payer OTHER, SELFPAY ==
[2018-05-22 18:01] VITALS: BMI 32.0
[2019-09-01 15:22] VITALS: BMI 34.3
[2019-09-03] VITALS (9 sets, daily range): BP systolic 125–167; BP diastolic 79–98; PULSE 57–70; RESP 7–16; TEMP 35.7–36.3; O2SAT 97–100; BMI 33.7
--- NOTE | 2019-09-03 | DI.RAD.S_ITS ---
PROCEDURE: XR LUMBAR SPINE 2-3V INDICATIONS: L3-4, L4-5 LAMINECTOMY TECHNIQUE: 2 lateral operative views of the lumbar spine were acquired. COMPARISON: None. FINDINGS: Lateral operative C-arm images demonstrate localization of the L4 level posteriorly with a radiopaque instrument. IMPRESSION: Operative imaging obtained for lumbar surgery level localization Dictated by: Harris Richards M.D. on 09/03/2019 at 17:19 Approved by: Harris Richards M.D. on 09/03/2019 at 17:19
--- NOTE | 2019-09-03 11:55 | PM.PREOP ---
Pre-operative Note COVID-19 COVID-19 status: Negative Result date/Date tested (Pos, Neg/Pending): 09/01/19 Interval Note History & Physical reviewed/Exam performed by Physician: Yes Changes to H&P: No
[2019-09-03] MEDS: LACTATED RINGERS 1,000 ML 42 ML IV (12:26)
[2019-09-03] MEDS: CEFAZOLIN 2 GM/100 ML FROZ.PIGGY IV (12:44)
[2019-09-03] MEDS: BUPIVACAINE 0.25% W/ EPI 30 ML VIAL INJ (13:20)
[2019-09-03] MEDS: BUPIVACAINE LIPOSOME 266 MG/20 ML VIAL INJ (13:33)
[2019-09-03] MEDS: methylPREDNISolone acet DEPO 40 MG/ML VIAL INJ (13:34)
--- NOTE | 2019-09-03 13:49 | PM.OP.1 ---
Operative Date/Time/Diagnoses Date of procedure: 09/03/19 Time of procedure: 12:49 Pre-op diagnosis: 1. L3-4, L4-5 spinal stenosis 2. Lumbar spondylosis with radiculopathy Post-op diagnosis: same Procedure & Clinicians Procedure: 1. L4-5 laminectomy with bilateral partial facetecomies 2. L3-4 left hemilaminectomy 3. Utilization of microsurgical technique and operating microscope Same procedure as scheduled: Yes Indications: Patient has been having chronic back pain and worsening lumbar radiculopathy. Patient failed multiple conservative management with worsening pain weakness and numbness in her lower extremity. Patient has been having difficulty performing activity of daily living. After discussing risks benefits of treatment options, patient elected proceed with surgery. Surgeon: Tez Sheehan Sound Recording Technician: Sherry Christie Click Yes if Unassisted: No Anesthesia Type: General Operative Notes Closure Type: primary Specimen(s): none sent Estimated Blood Loss (mL): 5 Blood products transfused: none Procedure in detail: Patient was seen in the preoperative area. Risks and benefits of the surgery was discussed with the patient. Informed consent was obtained from the patient and placed in the chart. Surgical site was marked. Patient was taken to the operative room. General anesthesia was administered. Prophylactic antibiotic was given to the patient less than 30 min before the incision was made. Patient was placed into a prone position on the Nitesh table. Patient's back was then prepped and draped in the sterile fashion. Time-out was performed at this time. Using AP and lateral C-arm imaging the interval between L3-4 L4-5 was identified and marked on patient's back. A 1 inch incision 1 in from midline was made on the left side. The fascia was incised in line with skin incision. Globus MARS retractors was placed inside the incision and docked onto the L4 lamina. Using microsurgical technique and operating microscope, a L4 laminectomy was performed using a Kerrison rongeur. Liagamentum flavum was resected at the site of the laminotomy. Either side of the dura was exposed. Bilateral partial facetcomies was performed to further decompress the lateral recess. After the laminectomy was completed, the area medial lateral superior and inferior to the area of the laminectomy was inspected and explored using a micro curette. No other impinging structure was identified. The mars retractor was redirected over the L3-4 interval. Using microsurgical technique and operative microscope a hemilaminectomy was performed at L3-4 level. Kerrison rongeur a micro curette was used to free up the ligamentum flavum which was resected during the process of a hemilaminectomy for the further decompressing the epidural space and lateral recess. The wound was then irrigated with sterile normal saline. 40 mg Depo-Medrol was placed into the epidural space. The deep fascia was closed with 1-0 Vicryl. The subcutaneous tissue was closed with 2-0 Vicryl. The skin was closed with skin kayce. Patient tolerated the procedure well. There were no complications. Patient was transferred recovery room in stable condition. Complications: none Post-operative Condition: stable Disposition: same day surgery Plan for aftercare: Discharge to home
[2019-09-03] MEDS: OXYCODONE IR 5 MG TABLET PO ×2 (14:19→14:43)
--- NOTE | 2019-09-03 14:26 | SUR.PHASEI ---
Dr. Lowery stated that patient may turn on nerve stimulator when he wants to, patient turned it on at [id number]
== END 2019-09-03 15:31 | disposition home or self-care (01) ==
PROVIDERS: PCP Physician Assistant Medical; Referring Provider Orthopaedic Surgery Orthopaedic Surgery of the Spine; Visit Provider Orthopaedic Surgery Orthopaedic Surgery of the Spine
PROC: (CPT 63047; principal; 2019-09-03 13:15)
DX: M48.061 Spinal stenosis, lumbar region without neurogenic claudication (principal); M47.27 Other spondylosis with radiculopathy, lumbosacral region; E11.9 Type 2 diabetes mellitus without complications; G47.33 Obstructive sleep apnea (adult) (pediatric); Z86.73 Personal history of transient ischemic attack (TIA), and cerebral infarction without residual deficits; Z79.4 Long term (current) use of insulin
CPT/HCPCS: 63047; 63030; 72100; 76000; C9290; J0690; J1030; J1100; J2405; J2704; J3010

== ENCOUNTER 2023-12-07 06:56 | Outpatient (CLI) | payer OTHER, SELFPAY ==
[2018-05-22 18:01] VITALS: BMI 32.0
[2023-12-07] VITALS (23 sets, daily range): BP systolic 105–136; BP diastolic 55–81; PULSE 64–92; RESP 10–20; TEMP 37.4; O2SAT 16–100
--- NOTE | 2023-12-07 06:58 | DI.CT.S_ITS ---
PROCEDURE: CT BIOPSY BONE DEEP Sedation analgesia for 28 minutes. INDICATIONS: SPLENOMEGALY, LOW PLATELETS TECHNIQUE: The indications, alternatives, benefits, risks, and possible complications of the procedure were communicated to the patient. Informed written consent from the patient was obtained and placed in the chart. Continuous EKG and hemodynamic monitoring was started by trained personnel. 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 The appropriate site for percutaneous access to the biopsy target was marked, was prepped and draped sterilely, and was infused with local anaesthesia. Under CT guidance, a core biopsy trocar and needle set was advanced to the biopsy target, and specimen(s) were obtained. The trocar and needle were then removed. The incision site was sealed with Dermabond and covered with a Tegaderm gauze. A post procedure CT scan did not show any evidence of bleeding or pneumoperitoneum. The patient was then sent for post-procedure monitoring. COMPARISON: [facility] [place], CR, XR PELVIS WITH LATERAL HIP RIGHT, 11/07/2023, 10:35. FINDINGS: Biopsy site: Right posterior iliac crest Needle: 14 gauge biopsy needle with introducer trocar. Number of passes: 3 Medications: 1% lidocaine for local anaesthesia. 50:50 mixture of 1 percent lidocaine and 0.5 percent bupivacaine for periosteal anesthesia. IV Fentanyl 50 mcg and Versed 1 mg for conscious sedation for 28 minutes (see nursing record). Complications: None. IMPRESSION: Successful CT-guided biopsy of right posterior iliac crest for bone marrow aspiration and biopsy. Dictated by: Scotty Horn M.D. on 12/07/2023 at 11:12 Approved by: Scotty Horn M.D. on 12/07/2023 at 11:19
[2023-12-07 08:27] LABS: INR 1.5 (0.9-1.3); Prothrombin Time 16.5 SECONDS (9.4-12.5)
[2023-12-07 08:28] LABS: Hematocrit 40.2 % (41-53); Hemoglobin 13.8 g/dL (13.5-17.5); Mean Corpuscular HGB Conc 34.2 % (30-36); Mean Corpuscular Hemoglobin 30.1 PG (26-34); Mean Corpuscular Volume 88.1 fL (80-100); Red Blood Cell Count 4.56 X10^6/uL (4.5-5.9); Red Cell Distribution Width 14.8 % (11.6-14.8); White Blood Cell Count 5.3 X10^3/uL (4.5-11.0)
[2023-12-07 08:32] LABS: Platelet Count 50 X10^3/uL (150-400)
--- NOTE | 2023-12-07 08:35 | PM.ANES.PR ---
Operative Date/Time/Diagnoses Date of procedure: 12/07/23 Time of procedure: 08:36 Pre-op diagnosis: splenomegaly Note The pt is a 67 year old male with splenomegaly who presents for a CT-guided bone marrow biopsy under moderate sedation. The pt reports abdominal pain but the review of systems is otherwise negative. Physical Exam: Mental: A & O x 3 Head and Neck: Mallampatti score at Class 2 Eyes: extraocular movements intact Cardiovascular: regular rate and rhythm, no murmurs Pulmonary: clear to auscultation, no crackles or wheezing Abdominal: tender to palpation in the left upper quadrant ASA Category: II - pt with mild systemic disease Assessment/Plan: The pt is a 67 year old male who presents for a bone marrow biopsy under moderate sedation for the evaluation of underlying splenomegaly. The pt is an appropriate candidate for biopsy without any absolute contraindications. Scotty Horn MD Radiology
[2023-12-07] MEDS: MIDAZOLAM 2 MG/2 ML VIAL 1 MG IV (09:03)
[2023-12-07] MEDS: fentaNYL 100 MCG/2 ML INJ 50 MCG IV (09:03)
[2023-12-07] MEDS: BUPIVACAINE 0.5% MDV 50 ML INJ (10:27)
[2023-12-07] MEDS: LIDOCAINE 1% 20 ML INJ (10:28)
== END 2023-12-07 11:30 | disposition home or self-care (01) ==
PROVIDERS: PCP Physician Assistant Medical; Referring Provider Internal Medicine Medical Oncology; Visit Provider Internal Medicine Medical Oncology
DX: D69.6 Thrombocytopenia, unspecified (principal); R16.1 Splenomegaly, not elsewhere classified; R63.4 Abnormal weight loss
CPT/HCPCS: 20225; 77012; 85027; 85610; 99152; 99153; J2250; J3010